=== PATIENT | female | born 1985 | race Caucasian/White ===

== ENCOUNTER → 2018-05-28 16:25 | Outpatient (CLI) | payer MEDICAID ==
[2010-08-09 00:25] VITALS: BMI 35.5
== END | disposition home or self-care (01) ==
LOC: D.MRI 16:25
DX: M54.5 Low back pain (principal)

== ENCOUNTER → 2018-06-05 14:49 | Outpatient (CLI) | payer MEDICAID ==
[2010-08-09 00:25] VITALS: BMI 35.5
== END | disposition home or self-care (01) ==
LOC: D.US 06-02 15:00
DX: D48.61 Neoplasm of uncertain behavior of right breast (principal)

== ENCOUNTER → 2018-10-06 16:56 | Outpatient (CLI) | payer MEDICAID ==
[2010-08-09 00:25] VITALS: BMI 35.5
== END | disposition home or self-care (01) ==
LOC: D.CT 16:56
DX: R10.9 Unspecified abdominal pain (principal)

== ENCOUNTER 2019-07-26 13:30 | Observation (INO) | payer MEDICAID ==
[~2019-07-26] VITALS: Ht 157.5 cm; Wt 92.5 kg
[2019-07-26] MEDS ORDERED: PRENAVITE1 TAB PO (14:01)
[2019-07-26 14:48] LABS: HEMATOCRIT 35.5 % (36.0-48.0); HEMOGLOBIN 11.9 g/dL (12-16); MCH 29.1 pg (26.0-34.0); MCHC 33.5 g/dL (31.0-37.0); MCV 86.8 fL (80.0-100.0); MEAN PLATELET VOLUME 9.9 fL (7.4-10.4); PLATELET COUNT 342 10x3/uL (130-400); RBC 4.09 10x6/uL (4.00-5.40); RDW 14.2 % (11.5-14.5); WBC 11.5 10x3/uL (4.8-10.8)
[2019-07-26 14:53] LABS: APPEARANCE CLOUDY (CLEAR); BILIRUBIN NEGATIVE (NEGATIVE); COLOR YELLOW (YELLOW); GLUCOSE NEGATIVE (NEGATIVE); KETONE LARGE mg/dL (NEGATIVE); NITRITE NEGATIVE (NEGATIVE); PROTEIN TRACE mg/dL (NEGATIVE); RED CELLS - URINE 25-50 /hpf (0-5); UROBILINOGEN NORMAL (NORMAL)
[2019-07-26 14:54] LABS: AMORPHOUS SEDIMENT <1+ /lpf (NONE SEEN); BACTERIA MODERATE /hpf (NONE SEEN); MUCUS >1+ /lpf (NONE SEEN)
[2019-07-26 15:20] LABS: EOSINOPHILS 1 % (0-7); LYMPHOCYTES 18 % (15-50); NEUTROPHILS 81 % (40-80)
[2019-07-26 15:21] LABS: PLATELET ESTIMATE NORMAL
--- NOTE | 2019-07-27 09:30 | NUR ---
co pain lt lower ack and requesting tylenol. rates pain a 6 on scale of 0-10.
--- NOTE | 2019-07-27 09:32 | NUR ---
tylenol given as requested. talking on cell phone.
--- NOTE | 2019-07-27 10:55 | NUR ---
up to shower- linens changed.
--- NOTE | 2019-07-27 11:26 | NUR ---
pt co iv hurting a bit- after reconnected from shower. no swelling noted- iv discontinued. cath removed with cath tip intact.
--- NOTE | 2019-07-27 13:20 | NUR ---
iv restart attempted per nursing professor- farhana underwood rn assisting into lt wrist- no flash noted.
--- NOTE | 2019-07-27 13:35 | NUR ---
attempted iv lt wrist x1 using 18 g cath- flash present but would not thread. report to americo carlton rn.
--- NOTE | 2019-07-27 15:00 | NUR ---
resting in bed- denies needs.
--- NOTE | 2019-07-27 17:30 | NUR ---
up to bathroom as needs. no requests.
--- NOTE | 2019-07-27 19:45 | NUR ---
PT REC'D IN BED AT THIS TIME. DENIES ANY PAIN AT THIS TIME. LUNGS CLEAR. BS+. FHTS VIA DOPPLER 168. AFEBRILE. TOLERATING DIET AT THIS TIME. NO DISTRESS NOTED. SIDERAIL UP FRO SAFETY. CALL LIGHT IN PT REACH. PT MEDICATED WITH TUMS FOR INDIGESTION. CALL LIGHT IN PT REACH. Lucretia DANIEL RN
[2019-07-27 20:01] VITALS: BP 108/61; Ht 157.5 cm; Wt 92.5 kg
--- NOTE | 2019-07-27 20:15 | NUR ---
PT SITTING IN BED EATING SPAGHETTI AT THIS TIME. S/O AT BESIDE AND SUPPORTIVE. Lucretia DANIEL RN
[2019-07-28 00:21] VITALS: BP 96/53
--- NOTE | 2019-07-28 00:21 | NUR ---
PT RESTING WITH EYES CLOSED, AROUSES TO SOFT VERBAL STIMULATION, VS OBTAINED, PT DENIES NEEDS OR PAIN AT THIS TIME
--- NOTE | 2019-07-28 02:09 | NUR ---
STEF KRISHNAMURTHY IVPB PER MD ORDERS, SEE EMAR
[2019-07-28 04:13] VITALS: BP 94/50
--- NOTE | 2019-07-28 04:13 | NUR ---
PT RESTING WITH EYES CLOSED, AROUSES TO SOFT VERBAL STIMULATION, VS OBTAINED, NEW BAG OF LR HUNG VIA PUMP INFUSING AT 125 ML/HR, PUMPS CLEARED, PT REPORTS THAT SHE IS READY TO GO HOME TODAY, PT DENIES NEEDS, PAIN, NO N/V, AND VOIDING WITH NO DIFFICULTY, BED IN LOW POSITION, SIDE RAILS X 2, CALL LIGHT IN REACH
--- NOTE | 2019-07-28 06:23 | NUR ---
PT RESTING WITH EYES CLOSED, RESP QUIET, NO DISTRESS NOTED, LEFT UNDISTURBED AT THIS TIME
== END 2019-07-28 10:40 | disposition home or self-care (01) ==
LOC: D.LD 13:30 → D.LDO 13:30 → D.LD 20:07 → D.LDO 07-27 20:32 → D.LD 07-27 20:32 → OBSVTIME 07-27 20:33 → D.LD 07-27 20:33 → D.LDO 07-27 20:33 → D.LD 07-28 10:40
PROVIDERS: ADMIT Student in an Organized Health Care Education/Training Program; ATTEND Student in an Organized Health Care Education/Training Program
DX: O23.02 Infections of kidney in pregnancy, second trimester (principal); B96.89 Other specified bacterial agents as the cause of diseases classified elsewhere; Z3A.16 16 weeks gestation of pregnancy

== ENCOUNTER 2019-08-17 23:28 | Emergency (ER) | payer MEDICAID ==
[~2019-08-17] VITALS: Ht 157.5 cm; Wt 95.0 kg
[~2019-08-17 23:28] MED LIST: PRENAVITE1 TAB PO
[2019-08-17 23:32] VITALS: Ht 157.5 cm; Wt 95.0 kg
[2019-08-17] MEDS ORDERED: MACROBID100 MG PO (23:33)
[2019-08-18 00:09] LABS: HEMATOCRIT 31.4 % (36.0-48.0); HEMOGLOBIN 10.5 g/dL (12-16); LYMPHOCYTES 15.1 % (15-50); MCH 29.1 pg (26.0-34.0); MCHC 33.4 g/dL (31.0-37.0); NEUTROPHILS 78.4 % (40-80); PLATELET COUNT 313 10x3/uL (130-400); RBC 3.61 10x6/uL (4.00-5.40); RDW 13.7 % (11.5-14.5)
[2019-08-18 00:14] LABS: APPEARANCE HAZY (CLEAR); BILIRUBIN NEGATIVE (NEGATIVE); COLOR YELLOW (YELLOW); GLUCOSE NEGATIVE (NEGATIVE); KETONE NEGATIVE (NEGATIVE); NITRITE NEGATIVE (NEGATIVE); PROTEIN TRACE mg/dL (NEGATIVE); UROBILINOGEN NORMAL (NORMAL)
[2019-08-18 00:15] LABS: BACTERIA FEW /hpf (NEGATIVE); EPITHELIAL CELLS 0-5 /hpf (0-5); RED CELLS - URINE 0-5 /hpf (0-5)
[2019-08-18 00:20] LABS: ALBUMIN 2.3 g/dL (3.4-5.0); ALKALINE PHOSPHATASE 58 U/L (46-116); ALT (SGPT) 11 U/L (10-68); BILIRUBIN - TOTAL 0.11 mg/dL (0.2-1.3); CALC OSMOLALITY 275 mosm/kg (275-300); CALCIUM 8.3 mg/dL (8.5-10.1); CARBON DIOXIDE 26.4 mmol/L (21.0-32.0); CHLORIDE - SERUM 105 mmol/L (98-107); CREATININE - SERUM 0.6 mg/dL (0.6-1.3); POTASSIUM - SERUM 3.6 mmol/L (3.5-5.1); PROTEIN - SERUM 6.4 g/dL (6.4-8.2); SODIUM 139 mmol/L (136-145); UREA NITROGEN 8 mg/dL (7-18); eGFR NON AFRICAN AMERICAN > 90 mL/min (90-120)
[2019-08-18 00:28] LABS: GLUCOSE 96 mg/dL (74-106)
[2019-08-18] MEDS ORDERED: KEFLEX500 MG PO (00:31)
[2019-08-18 00:54] VITALS: BP 119/86
== END 2019-08-18 00:46 | disposition home or self-care (01) ==
LOC: D.ER 23:28
PROVIDERS: Family Medicine
DX: O23.40 Unspecified infection of urinary tract in pregnancy, unspecified trimester (principal)

== ENCOUNTER → 2019-08-18 13:38 | Outpatient (CLI) | payer MEDICAID ==
[2019-08-17 23:32] VITALS: BMI 38.3
[~2019-08-18 13:38] MED LIST changes: +KEFLEX500 MG PO; +MACROBID100 MG PO
--- NOTE | 2019-08-18 13:52 | NUR ---
PT SITTING UP IN BED. VISITS WITH FAMILY. DENIES PAIN OR NEEDS.
== END | disposition home or self-care (01) ==
LOC: D.LDO 13:38
PROVIDERS: ATTEND Student in an Organized Health Care Education/Training Program
DX: O26.892 Other specified pregnancy related conditions, second trimester (principal)

== ENCOUNTER 2019-11-17 10:03 | Outpatient (CLI) | payer MEDICAID ==
[2019-08-17 23:32] VITALS: BMI 38.3
[2019-11-17 10:44] LABS: BASOPHILS 0.2 % (0-2); EOSINOPHILS 1.4 % (0-7); HEMATOCRIT 33.2 % (36.0-48.0); HEMOGLOBIN 10.3 g/dL (12-16); IMMATURE GRANULOCYTES 0.9 % (0-5); LYMPHOCYTES 15.5 % (15-50); MCV 87.1 fL (80.0-100.0); MEAN PLATELET VOLUME 9.9 fL (7.4-10.4); MONOCYTES 3.6 % (2-11); NEUTROPHILS 78.4 % (40-80); PLATELET COUNT 314 10x3/uL (130-400); RBC 3.81 10x6/uL (4.00-5.40); RDW 14.5 % (11.5-14.5)
[2019-11-17 11:04] LABS: CALC OSMOLALITY 279 mosm/kg (275-300); CALCIUM 8.5 mg/dL (8.5-10.1); CARBON DIOXIDE 23.9 mmol/L (21.0-32.0); CHLORIDE - SERUM 104 mmol/L (98-107); CREATININE - SERUM 0.6 mg/dL (0.6-1.3); GLUCOSE 164 mg/dL (74-106); POTASSIUM - SERUM 3.4 mmol/L (3.5-5.1); SODIUM 139 mmol/L (136-145); UREA NITROGEN 7 mg/dL (7-18); eGFR NON AFRICAN AMERICAN > 90 mL/min (90-120)
[2019-11-17 11:09] LABS: ALBUMIN 2.3 g/dL (3.4-5.0); ALKALINE PHOSPHATASE 116 U/L (46-116); ALT (SGPT) 14 U/L (10-68); BILIRUBIN - TOTAL 0.11 mg/dL (0.2-1.3)
[2019-11-17 11:28] LABS: UDS - AMPHET NEGATIVE QUAL (NEGATIVE); UDS - BARB NEGATIVE QUAL (NEGATIVE); UDS - BENZO NEGATIVE QUAL (NEGATIVE); UDS - COCAINE NEGATIVE QUAL (NEGATIVE); UDS - OPIATE NEGATIVE QUAL (NEGATIVE); UDS - PCP NEGATIVE QUAL (NEGATIVE); UDS - THC POSITIVE QUAL (NEGATIVE)
[2019-11-17 11:42] LABS: APPEARANCE CLEAR (CLEAR); BILIRUBIN NEGATIVE (NEGATIVE); COLOR YELLOW (YELLOW); GLUCOSE 250 mg/dL (NEGATIVE); KETONE NEGATIVE (NEGATIVE); NITRITE NEGATIVE (NEGATIVE); PROTEIN NEGATIVE (NEGATIVE); SPECIFIC GRAVITY 1.025 (1.005-1.020); UROBILINOGEN NORMAL (NORMAL)
[2019-11-17 11:44] LABS: BACTERIA MODERATE /hpf (NEGATIVE); EPITHELIAL CELLS 0-5 /hpf (0-5); MUCUS <1+ /lpf (NONE SEEN); RED CELLS - URINE NONE SEEN /hpf (0-5); WHITE CELLS - URINE OCC /hpf (NEGATIVE)
== END 2019-11-17 13:26 | disposition home or self-care (01) ==
LOC: D.LDO 10:03
PROVIDERS: ATTEND Obstetrics & Gynecology
DX: O26.899 Other specified pregnancy related conditions, unspecified trimester (principal); Z3A.00 Weeks of gestation of pregnancy not specified; R42 Dizziness and giddiness

== ENCOUNTER → 2019-12-06 09:21 | Outpatient (CLI) | payer MEDICAID ==
[2019-08-17 23:32] VITALS: BMI 38.3
== END | disposition home or self-care (01) ==
LOC: D.LDO 09:21
PROVIDERS: ATTEND Student in an Organized Health Care Education/Training Program
DX: O24.419 Gestational diabetes mellitus in pregnancy, unspecified control (principal); Z3A.35 35 weeks gestation of pregnancy

== ENCOUNTER 2019-12-30 09:55 | Inpatient (IN) | payer BC ==
[~2019-12-30] VITALS: Ht 157.5 cm; Wt 98.4 kg
[2019-12-30] VITALS (9 sets, daily range): BP systolic 103–133; BP diastolic 53–83; Ht 157.5 cm; Wt 98.4 kg
[2019-12-30] MEDS ORDERED: CELEXA10 MG PO (11:07)
[2019-12-30] MEDS ORDERED: PROTONIX20 MG PO (11:08)
[2019-12-30] MEDS ORDERED: GLUCOPHAGE500 MG PO (11:08)
[2019-12-30 11:16] LABS: UDS - AMPHET NEGATIVE QUAL (NEGATIVE); UDS - BARB NEGATIVE QUAL (NEGATIVE); UDS - BENZO NEGATIVE QUAL (NEGATIVE); UDS - COCAINE NEGATIVE QUAL (NEGATIVE); UDS - OPIATE NEGATIVE QUAL (NEGATIVE); UDS - PCP NEGATIVE QUAL (NEGATIVE); UDS - THC NEGATIVE QUAL (NEGATIVE)
[2019-12-30 11:42] LABS: HEMATOCRIT 32.3 % (36.0-48.0); MCV 84.1 fL (80.0-100.0); MEAN PLATELET VOLUME 10.2 fL (7.4-10.4); RBC 3.84 10x6/uL (4.00-5.40); RDW 16.3 % (11.5-14.5); WBC 9.8 10x3/uL (4.8-10.8)
--- NOTE | 2019-12-30 15:20 | NUR ---
RECEIVED PT IN ROOM 1278 ON REG BED. BED LOCKED AND PLACED IN LOW POSITION. REPORT RECEIVED FROM ROGELIO ARANA RN, RECOVERY NURSE. PT AWAKE. AAO X 3. VSS. HRRR WITHOUT AUDIBLE MURMUR. BBS CLEAR. BS HYPOACTIVE X 4. ABDOMEN PALPATES SOFT. ABDOMINAL DRESSING DRY WITHOUT DRAINAGE NOTED. FUNDUS FIRM AT U/U. RUBRA LOCHIA MOD AMT. PERICARE DONE. PERIPADS CHANGED. ICE PACK TO INCISION. MEZA TO GRAVITY DRAINING CLEAR, YELLOW URINE. SCDS ON BLE. PUMP ON. STATES PAIN OF "9" ON 0-10 PAIN SCALE. STATES PAIN TO LEFT SIDE OF INCISION. PIV SITE CLEAR TO RIGHT HAND. LR AT 125 ML/HR. PT TALKING, LAUGHING AND VISITS WITH FAMILY/VISITORS. SR UP X 2. CALL LIGHT IN REACH.
--- NOTE | 2019-12-30 15:24 | NUR ---
MORPHINE 4 MG GIVEN SIVP OVER 2 MINUTES FOR PT C/O PAIN. PT INSTRUCTED ON MED. VERBALIZES UNDERSTANDING.
--- NOTE | 2019-12-30 15:30 | NUR ---
PT INSTRUCTED ON USE OF INCENTIVE SPIROMETER. PULLS 2500 WITHOUT DIFFICULTY. PT ALSO PROVIDED SURGICAL SPLINT PILLOW AND INSTRUCTED ON TCDB.
--- NOTE | 2019-12-30 16:45 | NUR ---
FUNDUS FIRM AT U/U. RUBRA LOCHIA SMALL AMT. PERIPADS CHANGED. MEZA DRAINING CLEAR, YELLOW URINE. PT STATES PAIN CONTINUES AT "9" ON 0-10 PAIN SCALE. STATES PAIN TO LEFT SIDE OF INCISION. STATES PAIN MED NOT RELIEVING PAIN. WILL NOTIFY .
--- NOTE | 2019-12-30 16:53 | NUR ---
DR MARTINEZ NOTIFIED OF PT RATE OF PAIN AND STATES PAIN MEDICATION NOT RELIEVING PAIN. ORDER RECEIVED.
--- NOTE | 2019-12-30 17:06 | NUR ---
DILAUDID 1 MG GIVEN SIVP OVER 2 MINUTES. PT INSTRUCTED ON MED. VERBALIZES UNDERSTANDING.
--- NOTE | 2019-12-30 17:45 | NUR ---
PERICARE DONE. SCANT RUBRA LOCHIA NOTED ON PERIPAD. FUNDUS FIRM AT U/U. ABDOMINAL DRESSING DRY WITHOUT DRAINAGE. MEZA DRAINING CLEAR, YELLOW URINE. PT STATES PAIN MEDICATION NOT RELIEVING PAIN. STATES PAIN "9" ON 0-10 PAIN SCALE. WILL NOTIFY .
--- NOTE | 2019-12-30 17:58 | NUR ---
DR IVERSON CREATIVE WRITING TEACHER. NOTIFIED OF PT C/O PAIN NOT RELIEVED BY PAIN MED. ORDERS RECEIVED.
--- NOTE | 2019-12-30 19:00 | NUR ---
I/O COMPLETED. BEDSIDE REPORT GIVEN TO Alexander RINCON RN.
--- NOTE | 2019-12-30 20:00 | NUR ---
PT TRANSFERRED VIA BED TO ROOM 1223 WITH ALL BELONGINGS, PT'S FAMILY AT SIDE, INFORMED PT THAT I WILL BE BACK SHORTLY TO DO ASSESSMENT, PT VERBALIZES UNDERSTANDING, PT ORIENTED TO ROOM, BED IN LOW POSITION, SIDE RAILS X 2, CALL LIGHT IN REACH
--- NOTE | 2019-12-30 20:30 | NUR ---
ASSESSMENT PER FLOW SHEET, VS OBTAINED, IV IN RIGHT HAND INTACT WITH NO REDNESS OR EDEMA, INFUSING VIA PUMP LR PER MD ORDERS, FF, ML, U/1, LITE BLEEDING NOTED WITH NO CLOTS, AYAH CARE DONE WITH WET WARM WASH CLOTHS, WHITE CHUX AND AYAH PAD CHANGED, [employer] WITH LARGE DRESSING CDI WITH NO DRAINAGE NOTED, ICE PACK TO ABD, MEZA CATH INTACT DRAINING DARK YELLOW URINE, SCD'S ON AND WORKING PROPERLY, PT C/O PAIN, WILL ADM TORADOL AND DILAUDID, SEE EMAR, PT DENIES FLATUS AT THIS TIME, BED IN LOW POSITION, SIDE RAILS X 2, CALL LIGHT IN REACH, IN OPEN CRIB CART AND FAMILY MEMBER AT BEDSIDE
--- NOTE | 2019-12-30 20:50 | NUR ---
NEW BAG OF NS WITH PITOCIN HUNG AND ADM TORADOL SIVP PER MD ORDERS, SEE EMAR
--- NOTE | 2019-12-30 21:14 | NUR ---
ADM JIMMY PULLIAM PER MD ORDERS
--- NOTE | 2019-12-30 21:35 | NUR ---
MIKEY SPENCE RN REPORTS PT IS VOMITING AND THAT SHE PROVIDED EMESIS BAG
--- NOTE | 2019-12-30 21:39 | NUR ---
DR MARTINEZ NOTIFIED, REPORT OF VS, URINE OUTPUT, ORDER FOR DILAUDID PER DR IVERSON, ADM OF DILAUDID 2MG, TOLERATING CLEARS BEFORE ADM OF DILAUDID, ORDER RECEIVED FOR ZOFRAN 4MG Q6HPRN FOR NAUSEA, START PO PERCOCET ORDER LISTED ON EMAR, AND PROCEED WITH 12 HOUR POST OP WHEN DUE, ORDERS READ BACK AND VERIFIED
--- NOTE | 2019-12-30 21:49 | NUR ---
ADM BRIANA PULLAIM PER MD ORDERS, PT REPORTS "NOT VOMITING", JUST NAUSEATED, PT INFORMED OF ORDERS TO START PO PAIN MEDS, PT VERBALIZES UNDERSTANDING, DENIES FURTHER NEEDS
--- NOTE | 2019-12-30 22:30 | NUR ---
PT RESTING, REPORTS "FEELING MUCH BETTER", RATES PAIN 5-6/10, DENIES NEEDS AT THIS TIME, BEDDING PROVIDED TO FAMILY MEMBER, IN OPEN CRIB CART AT BEDSIDE
[2019-12-31 00:10] VITALS: BP 110/65
--- NOTE | 2019-12-31 00:10 | NUR ---
PT AWAKE, VS OBTAINED, MEZA CATH EMPTIED, PT STATES "IS THAT BLOOD IN MY URINE, INFORMED PT THAT IT WAS NOT, THAT IT IS DARK BECAUSE SHE NEEDED TO DRINK PLENTY OF FLUIDS, PT STATES "I'VE BEEN EATING ICE CHIPS", INFORMED PT THAT THAT WAS NOT THE SAME, THAT SHE NEEDED TO DRINK WATER, PT STATES "OH, I THOUGHT IT WAS THE SAME", FRESH H20 SERVED, SCANT VAG BLEEDING NOTED WITH NO CLOTS, FRESH ICE PACK TO ABD, POC DISCUSSED WITH PT REGARDING REMOVING OF MEZA CATH, SALINE LOCK IV, DRINKING PLENTY OF FLUIDS, VOIDING AFTER REMOVAL OF MEZA, AND PAIN MEDS, PT VERBALIZES UNDERSTANDING, SCD'S ON AND WORKING PROPERLY, DENIES FURTHER NEEDS, BED IN LOW POSITION, SIDE RAILS X 2, CALL LIGHT IN REACH
--- NOTE | 2019-12-31 01:24 | NUR ---
PT AWAKE, ADM PERCOCET PER MD ORDERS, SEE EMAR, SCD'S CONTINUE ON AND WORKING PROPERLY, DENIES FURTHER NEEDS, BED IN LOW POSITION, SIDE RAILS X 2, CALL LIGHT IN REACH, FAMILY MEMBER ASLEEP AT BEDSIDE
--- NOTE | 2019-12-31 01:38 | NUR ---
DR MARTINEZ CALLED AND GIVEN REPORT TO INCLUDE PATIENTS URINARY OUTPUT OF 60ML/HR. NEW ORDERS NOTED TO GIVE A 500ML IV BOLUS AND ONCE THE PT HAS 75-80ML/HR OUTPUT MAY D/C HER MEZA CATHETER.
--- NOTE | 2019-12-31 01:39 | NUR ---
INFANT TO ROOM VIA OPEN CRIB CART PER MIKEY SPENCE RN
--- NOTE | 2019-12-31 02:00 | NUR ---
BOLUS INITIATED AND ADM TORADOL SIVP PER MD ORDERS, SEE EMAR, EMPTIED 100 MLS OF DARK YELLOW URINE FROM MEZA CHAMBER TO MEZA BAG, PT REQUESTED AND SERVED [employer], FAMILY MEMBER (PT'S MOM) AT BEDSIDE
--- NOTE | 2019-12-31 02:35 | NUR ---
BOLUS FINISHED INFUSING, EMPTIED 100 MLS OF YELLOW URINE FROM MEZA CHAMBER TO MEZA BAG, URINE STARTING TO CLEAR AT THIS TIME, TO NSY VIA OPEN CART PER THIS RN
[2019-12-31 04:20] VITALS: BP 108/69
--- NOTE | 2019-12-31 04:20 | NUR ---
PT RESTING WITH EYES CLOSED, AROUSES TO SOFT VERBAL STIMULATION, VS OBTAINED, SCANT VAG BLEEDING WITH NO CLOTS NOTED, AYAH PAD CHANGED, I&O'S COLLECTED, FRESH ICE PACK TO ABD, PT REQUESTED AND SERVED H20 AND ICE CHIPS, INFORMED PT THAT I WILL REMOVE MEZA LATER THIS MORNING, PT VERBALIZES UNDERSTANDING, RATES INC PAIN 5-6/10, SCD'S CONTINUE ON AND WORKING PROPERLY, PT DENIES FURTHER NEEDS, PT'S MOM AT BEDSIDE
--- NOTE | 2019-12-31 06:05 | NUR ---
IV CONVERTED TO SALINE LOCK, FLUSHED WITH 10MLS OF NS WITH NO DIFFICULTY, DR MARTINEZ IN ROOM, REMOVED DRESSING, [employer] WITH DERMABOND CDI WITH NO DRAINAGE NOTED, PT INST ON AND VERBALIZES INC CARE, OBTAINED FSBS PER DR MARTINEZ, FSBS 90, MEZA CATH REMOVED, TIP INTACT, 600 MLS OF CLEAR YELLOW URINE EMPTIED, PT STATES "I AM SO GLAD TO SEE THAT ITS A LOT BETTER NOW", PT INST ON AND VERBALIZES UNDERSTANDING OF NOT GETTING UP BY HERSELF TO VOID, USING [place] HAT, AND CALL LIGHT WHEN VOIDS, PT'S MOM REPORTS THAT SHE WILL HELP HER TO BR, BOTH INST TO USE CALL LIGHT FOR ANY ASSISTANCE, PT DENIES NEEDS AT THIS TIME
[2019-12-31 06:08] LABS: BASOPHILS 0.1 % (0-2); EOSINOPHILS 0.9 % (0-7); HEMATOCRIT 27.1 % (36.0-48.0); HEMOGLOBIN 8.2 g/dL (12-16); IMMATURE GRANULOCYTES 0.2 % (0-5); LYMPHOCYTES 19.1 % (15-50); MCH 25.5 pg (26.0-34.0); MCHC 30.3 g/dL (31.0-37.0); MCV 84.4 fL (80.0-100.0); MEAN PLATELET VOLUME 10.6 fL (7.4-10.4); MONOCYTES 7.1 % (2-11); NEUTROPHILS 72.6 % (40-80); PLATELET COUNT 227 10x3/uL (130-400); RBC 3.21 10x6/uL (4.00-5.40); RDW 16.2 % (11.5-14.5); WBC 8.1 10x3/uL (4.8-10.8)
[2019-12-31 06:09] LABS: RAPID PLASMA REAGIN Non Reactive (Non Reactive)
--- NOTE | 2019-12-31 07:00 | NUR ---
PT SITTING UP IN BED EATING BREAKFAST. PT. MOTHER AT BEDSIDE. IN GRANDMOTHE'S ARMS. NO COMPLAINTS OR NEEDS AT THIS TIME.
[2019-12-31 08:00] VITALS: BP 110/76
--- NOTE | 2019-12-31 08:51 | NUR ---
Josiane Arguelles 12/31/2019 S: Patient states she decided not to breastfeed due to having implants and is just given formula. O: Informed patient we respect how she decides to feed her brodie infant. Encouraged to reach out to hospital staff with any questions or concerns. A: Patient decided not to breastfeed. P: Patient will address any questions or concerns with nursing staff. Bev King, CLC
--- NOTE | 2019-12-31 09:30 | NUR ---
UP TO SHOWER. PT. MOTHER IN ROOM.
--- NOTE | 2019-12-31 09:35 | NUR ---
PT REQUESTS PAIN MEDICATION.
--- NOTE | 2019-12-31 10:00 | NUR ---
IV D/C'D. CATHETER INTACT. PRESSURE APPLIED AND BANDAGE PLACED AT SITE. NO BLEEDING NOTED.
--- NOTE | 2019-12-31 12:00 | NUR ---
SITTING UP IN BED EATING LUNCH. VISITORS AT BEDSIDE.
[2019-12-31 12:20] VITALS: BP 111/69
--- NOTE | 2019-12-31 13:30 | NUR ---
REQUESTIN PAIN MEDICATION.
--- NOTE | 2019-12-31 17:00 | NUR ---
SITTING UP IN BED EATING DINNER. VISITORS AT BEDSIDE.
--- NOTE | 2019-12-31 17:25 | OP ---
PATIENT NAME: ELIZABETH SOTO MEDICAL RECORD: [id number] :83 LOCATION:[facility] D.1223 ADMISSION DATE:12/30/19 SURGEON: PANCHITO MARTINEZ DO DATE OF OPERATION: 12/30/2019 PRIMARY SURGEON: Panchito Martinez DO PREOPERATIVE DIAGNOSIS: Scheduled repeat . POSTOPERATIVE DIAGNOSES: Scheduled repeat , intra-abdominal adhesions. ANESTHESIA: Spinal. PROCEDURE: Repeat low transverse section via Pfannenstiel incision. FINDINGS: Extensive intra-abdominal adhesions. Uterus unable to be exteriorized due to adhesions. Adhesions of bladder to anterior uterus. Female infant, weight 6 pounds 12 ounces, delivered at 1309, Apgars 8 and 9. Unable to visualize tubes and ovaries. SPECIMENS: Placenta and cord blood. ESTIMATED BLOOD LOSS: 800 mL. IV FLUIDS: 2 liters. URINE OUTPUT: 35 cc of clear urine. COMPLICATIONS: None. CONDITION: Stable. DESCRIPTION OF PROCEDURE: The risks, benefits, alternatives, and indications of the procedure were discussed with the patient and she voiced an understanding of the procedure and signed the consent. She was taken to the OR, where spinal anesthesia was administered and found to be adequate. She was placed in the dorsal supine position with a leftward tilt. She was prepped and draped in the normal sterile fashion. A Pfannenstiel skin incision was made with the scalpel and carried down to the underlying layer of the fascia with the Bovie. The fascia was incised at the midline and extended laterally. The inferior aspect of the fascial incision was grasped with Mina clamps and the rectus muscle was dissected off sharply. Attention was then turned to the superior aspect of the fascial incision and the rectus muscle was dissected off in a similar fashion. The rectus muscle was grasped with 2 Allises and down to the level of peritoneum with a scalpel. The peritoneum was identified and noted to be free of adherent bowel and entered bluntly. The peritoneum was further with a combination of gentle traction and sharp dissection. The bladder was noted to be adhesed to the anterior portion of the uterus as well as multiple adhesions of the uterus to the anterior abdominal wall. A bladder flap was created with Metzenbaum scissors and a bladder blade was inserted. A scalpel was used to create an incision in the lower uterine segment. The incision was extended with cephalad caudad traction. The 's head was brought to the incision, and the infant delivered without difficulty. Mouth and nose were suctioned. Cord was clamped and cut, and the infant was handed off to awaiting discharge coordinator. The placenta was manually removed. The uterus was unable to be OPERATIVE REPORT [id number] ELIZABETH SOTO exteriorized due to extensive intra-abdominal adhesions. A moist laparotomy sponge was used to assure complete removal of placental membranes. The hysterotomy was closed in situ with 0 Vicryl suture in a running locked fashion with good hemostasis noted. Due to the adhesions and damage to the anterior portion of the uterus on entry to the abdomen, a small area of defect was noted in the superior anterior part of the uterus and that was repaired in running locked fashion with 0 Vicryl suture with good hemostasis noted. The abdomen was unable to be irrigated due to extensive intra-abdominal adhesions, although a moist laparotomy sponge was used to assure complete removal of blood clots and fluid from the abdomen. The hysterotomy was then reinspected and noted to be hemostatic. The rectus muscle was closed with 2-0 Monocryl in a running fashion with good hemostasis. The fascial incision was closed with 0 Vicryl in a running fashion with good hemostasis. The subcutaneous fat was closed with 2-0 plain suture in a running fashion with good hemostasis. The skin was closed with 3-0 Monocryl suture in a subcuticular fashion with Dermabond covering. All needle, lap, sponge, and instrument counts were correct times 2. The patient tolerated the procedure well, and she was taken to the recovery room in stable condition. TRANSINT:[id number] Voice Confirmation ID: [id number] DOCUMENT ID: [id number] PANCHITO MARTINEZ DO at 1725 CC: [id number] DICTATION DATE: 12/31/1903 TUBE SKIVER: 12/31/19 0741 [facility] [place] [address]
--- NOTE | 2019-12-31 18:32 | NUR ---
SITTING UP IN BED. VISITORS AT BEDSIDE. REQUESTING PAIN MEDICATION.
--- NOTE | 2019-12-31 19:52 | NUR ---
PT SITTING UP IN BED, IN OPEN CRIB CART AT BEDSIDE, ADM CASIMIRO PO PER MD ORDERS, SEE EMAR, INFORMED PT THAT I WILL BE BACK SHORTLY TO DO ASSESSMENT, PT VERBALIZES UNDERSTANDING, DENIES FURTHER NEEDS AT THIS TIME
--- NOTE | 2019-12-31 20:29 | NUR ---
PT HOLDING INFANT, C/O HEARTBURN, INFORMED PT THAT I WILL NOTIFY THE DR SANITATION WORKER CLEANING EQUIPMENT TO SEE ABOUT SOMETHING FOR HEARTBURN, PT REPORTS TAKING PROTONIX EVERY DAY BUT REQUESTS JUST TO GET TUMS AT THIS TIME, PT REQUESTED AND SERVED FRESH H20 AND ICE CHIP
[2019-12-31 21:25] VITALS: BP 118/77
--- NOTE | 2019-12-31 21:25 | NUR ---
ASSESSMENT PER FLOW SHEET, VS OBTAINED, FF, ML, U/2, PT REPORTS LITE BLEEDING WITH 1 SMALL CLOT THIS MORNING, PT INST ON AND VERBALIZES UNDERSTANDING OF PPH, UPON EVALUATION OF INC, PT REACHES DOWN TO PULL ABD UP, PT INST NOT TO PULL ABD UP SO HARD, PT VERBALIZES UNDERSTANDING, NOTED APPROX 1/2 DOLLAR SIZE OF BLOODY DRAINAGE ON AYAH PAD, WILL NOTIFY MD, PT REPORTS FLATUS, BM TODAY AND VOIDING WITH NO DIFFICULTY
--- NOTE | 2019-12-31 21:39 | NUR ---
DR IVERSON NOTIFIED, REPORT OF PT'S CO HEARTBURN AND DRAINAGE OF INC, ORDERS RECEIVED FOR TUMS AND TO PLACE STERI STRIPS AT THIS TIME, ORDERS READ BACK AND VERIFIED
--- NOTE | 2019-12-31 21:45 | NUR ---
PT INFORMED OF DOCTORS ORDERS AND THAT I WILL ADM TUMS WHEN RECEIVED FROM PHARMACY, STERI STRIP PLACED ON INC PER MD ORDERS, PT RATES PAIN 05/19, WILL ADM PAIN MED WHEN DUE, PT VERBALIZES UNDERSTANDING, DENIES FURTHER NEEDS
--- NOTE | 2019-12-31 22:33 | NUR ---
PT BOTTLE FEEDING INFANT, ADM PERCOCET AND TUMS PER MD ORDERS, SEE EMAR, WITH FRESH H20, PT DENIES FURTHER NEEDS
--- NOTE | 2020-01-01 00:30 | NUR ---
PT RESTING WITH EYES CLOSED, RESP QUIET, NO DISTRESS NOTED, LEFT UNDISTURBED AT THIS TIME, IN OPEN CRIB CART AT BEDSIDE
[2020-01-01 01:27] VITALS: BP 117/68
--- NOTE | 2020-01-01 01:27 | NUR ---
PT RESTING WITH EYES CLOSED, AROUSES TO SOFT VERBAL STIMULATION, VS OBTAINED, ADM MOTRIN PER MD ORDERS, PT REQUESTS BENADRYL AT THIS TIME
--- NOTE | 2020-01-01 01:35 | NUR ---
ADM OLIVAS PER MD ORDERS, SEE EMAR, PT DENIES FURTHER NEEDS
--- NOTE | 2020-01-01 03:10 | NUR ---
PT RESTING WITH EYES CLOSED, RESP QUIET, NO DISTRESS NOTED, LEFT UNDISTURBED AT THIS TIME
--- NOTE | 2020-01-01 04:28 | NUR ---
PT RESTING WITH EYES CLOSED, RESP QUIET, NO DISTRESS NOTED, LEFT UNDISTURBED AT THIS TIME
--- NOTE | 2020-01-01 06:00 | NUR ---
PT TRANSFERRED VIA AMB WITH IN OPEN CRIB CART, GAIT STEADY, TO ROOM 1274, PT ORIENTED TO ROOM, BED IN LOW POSITION, SIDE RAILS X 2, CALL LIGHT IN REACH, ALL BELONGINGS TRANSFERRED WITH PT
--- NOTE | 2020-01-01 06:56 | NUR ---
ADM PERCOCET AND MOTRIN PO PER MD ORDERS, SEE EMAR, WITH FRESH H20 AND ICE CHIPS, PT DENIES FURTHER NEEDS
--- NOTE | 2020-01-01 07:18 | NUR ---
bedside report. pt awake, alert, oriented x4, in arms. states desire to go home today, states pain med effective 3/10 on numeric pain scale. see assessment for further information. reviewed plan of care, pt states understanding.
--- NOTE | 2020-01-01 08:15 | NUR ---
pt ambulatory in room and applying makeup after shower. nad noted.
[2020-01-01 09:00] VITALS: BP 131/77
--- NOTE | 2020-01-01 09:30 | NUR ---
pt resp even and unlabored, in arms, nad noted. will monitor.
--- NOTE | 2020-01-01 10:15 | NUR ---
dr hugo here on rounds, nad noted, reviewed home care instructions, incision care discussed and steristrips intact over dermabond low transverse incision. continue to monitor.
--- NOTE | 2020-01-01 11:15 | NUR ---
rounds completed, nad noted. continue to monitor.
--- NOTE | 2020-01-01 11:25 | NUR ---
PATIENT HAS DC ORDERS. MEDICATIONS RECONCILED BY . DR IVERSON ON L&D AND ORDERS RECEIVED TO CONTINUE PAIN MEDICATIONS SINCE SHE HAS NOT BEEN PHYSICALLTY DC'D FROM L&D. PATIENT CURRENTLY REQUESTING PAIN MEDICATION.
--- NOTE | 2020-01-01 11:47 | NUR ---
pain meds administered for c/o pain. dressed and ready to go home. reviewed need for business unit leader to discharge prior to discharge and plans on discharge today. pt states understanding. will monitor.
[2020-01-01] MEDS ORDERED: PERCOCET 7.5/321 TAB PO (12:20)
[2020-01-01] MEDS ORDERED: IBUPROFEN800 MG PO (12:20)
--- NOTE | 2020-01-01 12:30 | NUR ---
denies needs or concerns, pain med effective per pt report. will monitor. nad noted.
--- NOTE | 2020-01-01 13:30 | NUR ---
DISCHARGE INSTRUCTIONS REVIEWED WITH PT, QUESTIONS ANSWERED, HANDOUTS PROVIDED FOR REVIEW AT HOME, PT STATES UNDERSTANDING OF ALL INFORMATION PROVIDED.
--- NOTE | 2020-01-01 13:50 | NUR ---
pt discharged with in arms, infant secured in rear-facing carseat, personal belongings with spouse to private auto. nad noted.
--- NOTE | 2020-01-02 15:32 | MORECARE ---
CASE MANAGEMENT DISCHARGE SUMMARY PATIENT: ELIZABETH SOTO CLARITA UNIT: [id number] ADM DATE: 12/30/19 AGE: 34 : 83 SEX: F ROOM/BED: D.1274 AUTHOR: PEARL VASQUEZ PHYSICIAN: REFERRING PHYSICIAN: PANCHITO MARTINEZ DO DATE OF SERVICE: 01/02/20 Discharge Plan Patient Name: ELIZABETH SOTO [facility] [facility] 1985 Planned Disposition: Home Anticipated Discharge Date: 01/02/20 Discharge Date: 01/01/2020 Expected LOS: 3 Initial Reviewer: [email or web address] Initial Review Date: 12/30/2019 Generated: 01/02/20 4:31 pm Patient Name: ELIZABETH SOTO Page [id number] at 1532 All edits/amendments must be made on the electronic document DICTATION DATE: 01/02/20 1531 BOILER OR ENGINE OPERATOR: REZA 01/02/20 1531 RPT#: [id number] DC DATE:01/01/20 STATUS: DIS IN [facility] [address] [place] [id number] END OF REPORT
== END 2020-01-01 13:50 | disposition home or self-care (01) | DRG 788 ==
LOC: D.LD 09:55 → D.WS 09:55 → D.LD 12:00 → D.WS 20:00 → D.LD 01-01 05:45
PROVIDERS: ADMIT Student in an Organized Health Care Education/Training Program; ATTEND Student in an Organized Health Care Education/Training Program
PROC: 10D00Z1 Extraction of Products of Conception, Low, Open Approach (ICD-10-PCS; principal; 2019-12-30 12:00)
DX: O34.211 Maternal care for low transverse scar from previous cesarean delivery (principal); Z3A.39 39 weeks gestation of pregnancy; Z37.0 Single live birth; O99.62 Diseases of the digestive system complicating childbirth; O99.824 Streptococcus B carrier state complicating childbirth; N73.6 Female pelvic peritoneal adhesions (postinfective); Z87.891 Personal history of nicotine dependence

== ENCOUNTER → 2020-07-14 09:11 | Outpatient (CLI) | payer BC ==
[2019-12-30 10:43] VITALS: BMI 39.8
[~2020-07-14 09:11] MED LIST changes: +CELEXA10 MG PO; +GLUCOPHAGE500 MG PO; +IBUPROFEN800 MG PO; +PERCOCET 7.5/321 TAB PO; +PROTONIX20 MG PO
== END | disposition home or self-care (01) ==
LOC: D.US 09:11
PROVIDERS: ATTEND Student in an Organized Health Care Education/Training Program
DX: O26.899 Other specified pregnancy related conditions, unspecified trimester (principal); Z3A.00 Weeks of gestation of pregnancy not specified

== ENCOUNTER 2021-01-05 14:30 | Outpatient (CLI) | payer MEDICAID ==
[2019-12-30 10:43] VITALS: BMI 39.8
[2021-01-05 16:03] LABS: BILIRUBIN NEGATIVE (NEGATIVE); KETONE SMALL mg/dL (NEGATIVE); NITRITE POSITIVE (NEGATIVE); UROBILINOGEN NORMAL mg/dL (< 2)
[2021-01-05 16:14] LABS: BACTERIA MODERATE HPF (NONE SEEN)
== END 2021-01-05 17:24 | disposition home or self-care (01) ==
LOC: D.LDO 14:30
PROVIDERS: ATTEND Obstetrics & Gynecology
DX: O35.9XX0 Maternal care for (suspected) fetal abnormality and damage, unspecified, not applicable or unspecified (principal)

== ENCOUNTER 2021-05-07 05:42 | Day surgery (SDC) | payer BC ==
[~2021-05-07] VITALS: Ht 157.5 cm; Wt 84.4 kg
[2021-05-07 06:15] LABS: HEMATOCRIT 32.3 % (36.0-48.0); HEMOGLOBIN 10.2 g/dL (12-16); MCH 23.4 pg (26.0-34.0); MCHC 31.7 g/dL (31.0-37.0); MCV 73.7 fL (80.0-100.0); MEAN PLATELET VOLUME 7.2 fL (7.4-10.4); RBC 4.38 10x6/uL (4.00-5.40); RDW 17.9 % (11.5-14.5); WBC 9.9 10x3/uL (4.8-10.8)
[2021-05-07 06:30] LABS: HCG SERUM NEGATIVE (NEGATIVE)
[2021-05-07 06:31] LABS: PLATELET COUNT 466 10x3/uL (130-400)
[2021-05-07 06:32] LABS: CALC OSMOLALITY 284 mosm/kg (275-300); CALCIUM 8.4 mg/dL (8.5-10.1); CARBON DIOXIDE 24.1 mmol/L (21.0-32.0); CHLORIDE - SERUM 109 mmol/L (98-107); CREATININE - SERUM 0.7 mg/dL (0.6-1.3); GLUCOSE 122 mg/dL (74-106); POTASSIUM - SERUM 3.6 mmol/L (3.5-5.1); SODIUM 142 mmol/L (136-145); UREA NITROGEN 15 mg/dL (7-18); eGFR NON AFRICAN AMERICAN > 90 mL/min (90-120)
[2021-05-07] MEDS ORDERED: PROZAC40 MG (06:39)
[2021-05-07] MEDS ORDERED: DOXYCYCLINE HY100 M2 (06:40)
[2021-05-07] MEDS ORDERED: GLUCOPHAGE500 MG (06:40)
[2021-05-07 06:42] VITALS: Ht 157.5 cm; Wt 84.4 kg
[2021-05-07] MEDS ORDERED: TYLENOL W/CODEI1 TAB PO (09:02)
[2021-05-07] MEDS ORDERED: CEPHALEXIN500 M1 PO (09:02)
--- NOTE | 2021-05-07 11:17 | NUR ---
[facility] DC'D. OXYGEN SATURATION IS 97% 1035 DR ERICKSON AT BEDSIDE TALKING TO PT AND HER . ANSWERING QUESTIONS. IV DC'D. CATHETER TIP INTACT. NO REDNESS,SWELLING OR BLEEDING AT SITE. BANDAID APPLIED. PT PAIN LEVEL REMAINS AT 9. DR ERICKSON TOLD PT AND HER THAT SHE COULD TAKE 2 TYLENOL #3 EVERY 4 HOURS OR ONE TABLET EVERY 2 HOURS. PT SEEMS SATISFIED WITH THE PAIN MANAGEMENT PLAN. DISCHARGE INSTRUCTIONS REVIEWED WITH PT AND HER WHO BOTH VOICE UNDERSTANDING.
[2021-05-07 14:51] LABS: EOSINOPHILS 6 % (0-7); LYMPHOCYTES 20 % (15-50); MONOCYTES 6 % (2-11); NEUTROPHILS 68 % (40-80); PLATELET ESTIMATE INCREASED
== END 2021-05-07 10:49 | disposition home or self-care (01) ==
LOC: D.OPS 05:42
PROVIDERS: Anesthesiology; ATTEND Surgery
DX: L73.2 Hidradenitis suppurativa (principal); E11.9 Type 2 diabetes mellitus without complications; F32.9 Major depressive disorder, single episode, unspecified

== ENCOUNTER 2021-05-07 17:40 | Emergency (ER) | payer BC ==
[2021-05-07 06:42] VITALS: BMI 34.1
[~2021-05-07 17:40] MED LIST changes: +CEPHALEXIN500 M1 PO; +DOXYCYCLINE HY100 M2; +GLUCOPHAGE500 MG; +PROZAC40 MG; +TYLENOL W/CODEI1 TAB PO
== END 2021-05-07 18:09 | disposition left against medical advice (07) ==
LOC: D.ER 17:40
DX: R20.0 Anesthesia of skin (principal)

== ENCOUNTER → 2021-05-08 12:59 | Outpatient (CLI) | payer BC ==
[2021-05-07 06:42] VITALS: BMI 34.1
== END | disposition home or self-care (01) ==
LOC: D.RAD 12:59
PROVIDERS: ATTEND Surgery
DX: M21.372 Foot drop, left foot (principal)